=== PATIENT | male | born 1985 | race Caucasian/White ===

== ENCOUNTER 2018-04-18 05:45 | Day surgery (SDC) | payer BC ==
[2018-04-18] MEDS ORDERED: DIPRIVAN 200 MG/20 ML IV ONE (05:46)
[2018-04-18] MEDS ORDERED: Lactated Ringers 1,000 ML IV SCH (06:30)
[2018-04-18 08:22] VITALS: O2SAT 98
[2018-04-18 08:44] VITALS: BP 114/73; PULSE 68
--- NOTE | 2018-04-18 10:41 | OP ---
SURGERY DATE/TIME: 04/18/2018 0728 PREOPERATIVE DIAGNOSIS: Rectal bleeding. POSTOPERATIVE DIAGNOSIS: Internal hemorrhoid. PROCEDURE: Colonoscopy. SURGEON: Anderson Fuentes M.D. ANESTHESIA: MAC by Sabino Saldana CRNA. ESTIMATED BLOOD LOSS: None. SPECIMENS: None. DESCRIPTION OF PROCEDURE: After informed written consent was obtained, the patient was taken to the endoscopy suite. He underwent monitored anesthesia and digital rectal exam showed normal sphincter tone. The scope was inserted into the rectum and sequentially the entire colonic mucosa was traversed. The level of cecum was reached and verified with direct visualization of ileocecal valve. Upon withdrawal there were no mucosal abnormalities encountered. Prior to withdrawal retroflexion was performed and showed mild internal hemorrhoids with no active bleeding. No other lesions were encountered. The scope was removed and the patient was transferred to the recovery room in good condition.
== END 2018-04-18 09:02 | disposition home or self-care (01) ==
LOC: SDC 05:45
PROVIDERS: ATTEND Family Medicine
DX: K64.8 Other hemorrhoids (principal); K62.5 Hemorrhage of anus and rectum
CPT/HCPCS: J2704